=== PATIENT | male | born 1990 | race Caucasian/White ===

== ENCOUNTER 2021-01-24 09:47 | Emergency (ER) | payer SELFPAY ==
[~2021-01-24] VITALS: Ht 157.5 cm; Wt 79.0 kg
[2021-01-24 10:14] VITALS: BP 140/73
[2021-01-24] MEDS ORDERED: IBUPROFEN 600 MG TAB PO ONE (12:35)
[2021-01-24] MEDS ORDERED: LIDOCAINE MPF 1% 10 MG/ML VIAL INJ ONE (12:35)
--- NOTE | 2021-01-24 12:36 | NUR ---
AMBULATED TO ER CHAIR A
--- NOTE | 2021-01-24 12:46 | NUR ---
30 Y/O MALE C/O LAC WOUND TO RIGHT HAND X2HRS STATES PAIN TO RIGHT HAND 8/10 DESCRIBES ACHING. PT STATES HE WAS WORKING ON HIS CAR AND CUT HIMSELF WITH A METAL WIRE. DENIES N/V, DENIES FEVER/CHILLS. NO ACTIVE BLEEDING AT THIS TIME. DENIES PMH NKA
--- NOTE | 2021-01-24 12:59 | NUR ---
MAC CHAN WITH PT FOR PROCEDURE.
--- NOTE | 2021-01-24 13:29 | NUR ---
PT RESTING, VSS, WILL CONTINUE TO MONITOR.
[2021-01-24] MEDS ORDERED: IBUP-2213 PO (13:40)
[2021-01-24] MEDS ORDERED: BACI1PAC6 TP (13:40)
[2021-01-24 13:48] VITALS: BP 143/88
--- NOTE | 2021-01-24 13:49 | NUR ---
Patient discharged with v/s stable. Written and verbal after care instructions given LAC CAREand explained. Patient alert, oriented and verbalized understanding of instructions. Ambulatory with steady gait. All questions addressed prior to discharge. ID band removed. Patient advised to follow up with PMD. Rx of BACITRACIN ZINC TOPICAL AND IBUPROFEN 600MG PO Q8H PRN PAIN given. Patient educated on indication of medication including possible reaction and side effects. Opportunity to ask questions provided and answered.
== END 2021-01-24 13:48 | disposition home or self-care (01) ==
LOC: MED 09:47
DX: S61.011A Laceration without foreign body of right thumb without damage to nail, initial encounter (principal); X58.XXXA Exposure to other specified factors, initial encounter; Y93.89 Activity, other specified; Y92.89 Other specified places as the place of occurrence of the external cause; Y99.8 Other external cause status
CPT/HCPCS: 12002; 90471; 90715; 99283; J2001